=== PATIENT | female | born 1985 | race African-American/Black ===

== ENCOUNTER 2017-05-09 11:45 | Outpatient (CLI) | payer MEDICARE ==
--- NOTE | 2017-05-09 15:20 | XRAY Report ---
THREE VIEW LEFT INDEX FINGER: 05/09/2017 CLINICAL INDICATION: Proximal pain. FINDINGS: AP, lateral, and oblique views of the left index finger demonstrate no evidence of acute f racture or dislocation. The joint spaces are preserved. No radiopaque foreign body is seen in the sof t tissues. IMPRESSION: NORMAL LEFT INDEX FINGER. JOB #: [id number] EXT JOB #:[id number]
== END 2017-05-09 11:46 | disposition home or self-care (01) ==
LOC: DI.N 11:45
PROVIDERS: ATTEND Physician Assistant
DX: M25.442 Effusion, left hand (principal)
CPT/HCPCS: 73140